=== PATIENT | male | born 1950 | race Caucasian/White ===

== ENCOUNTER 2016-12-24 13:50 | Emergency (ER) | payer OTHER ==
[~2016-12-24] VITALS: Ht 170.2 cm; Wt 80.7 kg
[2016-12-24 14:42] LABS: HEMATOCRIT 41.7 % (38.0-50.0); MCH 31.7 PG (29.0-34.0); MCHC 35.3 G/DL (30.0-36.0); MCV 89.9 FL (86-99); MEAN PLAT.VOLUME 9.4 uM^3 (9.0-12.4); PLATELET COUNT 153 K/uL (156-360); RBC DIS.WIDTH-SD 39.5 % (39-53); RED BLOOD COUNT 4.64 M/uL (4.00-5.50); WHITE BLOOD COUNT 5.7 K/uL (4.1-10.2)
[2016-12-24 14:51] LABS: CHLORIDE 101 mEq/L (99-109); POTASSIUM 4.1 mEq/L (3.7-5.4); SODIUM 139 mEq/L (136-147)
[2016-12-24 14:53] LABS: GLUCOSE 133 mg/dL (70-99)
[2016-12-24 14:55] LABS: ANION GAP 12 MEQ/L (2-14); TOTAL BILIRUBIN 0.5 mg/dL (0.0-1.0)
[2016-12-24 14:57] LABS: ALKALINE PHOSPHATASE 47 IU/L (3-129); GFR ESTIMATE (CALCULATED) > 59 mL/min/
[2016-12-24 14:58] LABS: UREA NITROGEN (BUN) 13 mg/dL (9-23)
[2016-12-24 15:04] LABS: ADD MIUA? NO; BILIRUBIN NEGATIVE; BLOOD NEGATIVE; COLOR YELLOW ((YELLOW)); GLUCOSE (STRIP) NEGATIVE; KETONES NEGATIVE; LEUKOCYTES NEGATIVE; NITRITE NEGATIVE; PROTEIN (STRIP) NEGATIVE; SPECIFIC GRAVITY 1.014 (1.000-1.030); UROBILINOGEN 0.2 MG/DL (0.2-1.0)
[2016-12-24] MEDS ORDERED: IBUPROFEN800 MG PO (17:17)
[2016-12-24] MEDS ORDERED: TRAMADOL HCL50 MG PO (17:17)
[2016-12-24 17:31] VITALS: BP 115/67
[2016-12-24 21:15] LABS: UCUL ADDED? NO
== END 2016-12-24 17:32 | disposition home or self-care (01) ==
LOC: EME 13:50
DX: N43.3 Hydrocele, unspecified (principal); R10.31 Right lower quadrant pain; E11.9 Type 2 diabetes mellitus without complications
CPT/HCPCS: 74177; 80053; 81003; 85027; 99281; 99285; J1885; J3010; J7030

== ENCOUNTER 2017-01-07 10:04 | Day surgery (SDC) | payer OTHER ==
[~2017-01-07] VITALS: Ht 170.2 cm; Wt 81.6 kg
[~2017-01-07 10:04] MED LIST: FISH OIL 1,2001 EAC4 PO; GLUCOPHAGE500 MG PO; IBUPROFEN800 MG PO; LO-DOSE ASPIRIN81 M1 PO; MICROZIDE12.5 M1 PO; ONCE DAILY1 EACH PO; TRAMADOL HCL50 MG PO; ZESTRIL20 MG PO
[2017-01-07 10:44] VITALS: BP 132/60
[2017-01-07 11:04] LABS: POINT-OF-CARE METER ID UU14174212
[2017-01-07] MEDS ORDERED: NORCO 5/3251 TABLET PO (14:21)
[2017-01-07 15:01] LABS: POINT-OF-CARE METER ID UU13113675
[2017-01-07 15:05] VITALS: BP 142/63
[2017-01-07 15:58] VITALS: BP 125/58
== END 2017-01-07 16:00 | disposition home or self-care (01) ==
LOC: SDC 10:04 → 2SOUTH 15:22 → EDSTATUS 15:22 → SDC 15:23
PROVIDERS: Surgery
PROC: 0YQ50ZZ Repair Right Inguinal Region, Open Approach (ICD-10-PCS; principal; 2017-01-07)
DX: K40.90 Unilateral inguinal hernia, without obstruction or gangrene, not specified as recurrent (principal); N43.0 Encysted hydrocele; I10 Essential (primary) hypertension; E11.9 Type 2 diabetes mellitus without complications; I34.1 Nonrheumatic mitral (valve) prolapse; Z79.84 Long term (current) use of oral hypoglycemic drugs; Z79.82 Long term (current) use of aspirin; Z88.0 Allergy status to penicillin
CPT/HCPCS: 82948; C1781; J0690; J1885; J2405; J3010; S0020